=== PATIENT | male | born 1960 | race Caucasian/White ===

== ENCOUNTER 2017-03-02 09:16 | Emergency (ER) | payer MEDICARE, OTHER | END 2017-03-02 10:37 | disposition home or self-care (01) | LOC: FER 09:16 | DX: J95.03 Malfunction of tracheostomy stoma (principal); E11.9 Type 2 diabetes mellitus without complications; J44.9 Chronic obstructive pulmonary disease, unspecified; Z88.0 Allergy status to penicillin; Z87.09 Personal history of other diseases of the respiratory system; Z93.0 Tracheostomy status | CPT/HCPCS: 99284 ==

== ENCOUNTER 2017-03-22 17:08 | Emergency (ER) | payer MEDICARE, OTHER | END 2017-03-22 20:20 | disposition home or self-care (01) | LOC: FER 17:08 | DX: J95.03 Malfunction of tracheostomy stoma (principal); J44.9 Chronic obstructive pulmonary disease, unspecified; F20.9 Schizophrenia, unspecified; Z88.0 Allergy status to penicillin; Z79.51 Long term (current) use of inhaled steroids; Z99.81 Dependence on supplemental oxygen | CPT/HCPCS: 36600; 71010; 82803 ==